=== PATIENT | male | born 1945 | race Two or more races ===

== ENCOUNTER 2019-10-30 11:34 | Emergency (ER) | payer OTHER ==
[~2019-10-30] VITALS: Ht 167.6 cm; Wt 63.5 kg
[~2019-10-30 11:34] MED LIST: CIPRO500 MG PO; PROSCAR5 MG; PYRIDIUM100 MG PO
[2019-10-30] MEDS ORDERED: SAW PALMETTO500 MG (12:04)
== END 2019-10-30 16:58 | disposition home or self-care (01) ==
LOC: ER 11:34
DX: R33.8 Other retention of urine (principal)

== ENCOUNTER 2019-11-13 21:07 | Emergency (ER) | payer OTHER ==
[~2019-11-13] VITALS: Ht 162.6 cm; Wt 63.5 kg
[~2019-11-13 21:07] MED LIST changes: +SAW PALMETTO500 MG
[2019-11-13] MEDS ORDERED: TAMS0.4C (21:51)
== END 2019-11-14 15:05 | disposition home or self-care (01) ==
LOC: ER 21:07
DX: U07.1 COVID-19 (principal); R50.9 Fever, unspecified; N39.0 Urinary tract infection, site not specified; B96.5 Pseudomonas (aeruginosa) (mallei) (pseudomallei) as the cause of diseases classified elsewhere; R31.29 Other microscopic hematuria

== ENCOUNTER 2019-11-29 17:30 | Emergency (ER) | payer OTHER ==
[~2019-11-29] VITALS: Ht 167.6 cm; Wt 59.0 kg
[~2019-11-29 17:30] MED LIST changes: +TAMS0.4C
[2019-11-29] MEDS ORDERED: URECHOLINE25 MG (18:03)
== END 2019-11-29 19:53 | disposition home or self-care (01) ==
LOC: ER 17:30
DX: R33.8 Other retention of urine (principal)

== ENCOUNTER 2020-01-27 09:28 | Emergency (ER) | payer OTHER ==
[~2020-01-27] VITALS: Ht 167.6 cm; Wt 63.5 kg
[~2020-01-27 09:28] MED LIST changes: +URECHOLINE25 MG
== END 2020-01-27 10:01 | disposition home or self-care (01) ==
LOC: ER 09:28
DX: D29.1 Benign neoplasm of prostate (principal); Z46.6 Encounter for fitting and adjustment of urinary device

== ENCOUNTER 2020-02-19 13:01 | Emergency (ER) | payer OTHER ==
[~2020-02-19] VITALS: Ht 167.6 cm; Wt 61.2 kg
== END 2020-02-19 18:06 | disposition home or self-care (01) ==
LOC: ER 13:01
DX: N40.1 Benign prostatic hyperplasia with lower urinary tract symptoms (principal); N13.8 Other obstructive and reflux uropathy

== ENCOUNTER 2020-03-21 11:28 | Emergency (ER) | payer OTHER ==
[~2020-03-21] VITALS: Ht 167.6 cm; Wt 63.5 kg
[2020-03-21] MEDS ORDERED: TAMS0.4C PO (11:59)
[2020-03-21] MEDS ORDERED: CIPRO500 MG PO (11:59)
[2020-03-21] MEDS ORDERED: INTESTINEX680 M1 PO (12:00)
== END 2020-03-21 13:47 | disposition home or self-care (01) ==
LOC: ER 11:28
DX: R33.8 Other retention of urine (principal)

== ENCOUNTER 2022-11-08 01:34 | Emergency (ER) | payer OTHER ==
[~2022-11-08] VITALS: Ht 167.6 cm; Wt 65.8 kg
[~2022-11-08 01:34] MED LIST changes: +INTESTINEX680 M1 PO; +TAMS0.4C PO
[2022-11-08] MEDS ORDERED: PROSCAR5 MG PO (01:50)
== END 2022-11-08 03:41 | disposition home or self-care (01) ==
LOC: ER 01:34
DX: R30.0 Dysuria (principal); R31.9 Hematuria, unspecified